=== PATIENT | female | born 1960 | race Caucasian/White ===

== ENCOUNTER → 2018-05-13 | Outpatient (CLI) | payer MEDICAID, MEDICARE ==
--- NOTE | 2018-05-13 15:15 | Diagnostic Imaging Report ---
PROCEDURE: CT abdomen and pelvis without contrast. TECHNIQUE: Multiple contiguous axial images were obtained through the abdomen and pelvis without the use of intravenous contrast. INDICATION: Frequent urinary tract infections and hematuria. COMPARISON: No prior studies are available for comparison. FINDINGS: There is a calcified granuloma in the right lower lobe. No discrete liver mass is identified. The gallbladder appears to be surgically absent. No biliary ductal dilatation is seen. The pancreas and spleen are unremarkable. Minimal nodularity to the left adrenal gland is noted measuring 12 mm. This appears to be low density and may represent a small adenoma. No definite renal calculi or hydronephrosis is identified. The aorta is calcified but nonaneurysmal. No central retroperitoneal or mesenteric lymphadenopathy is detected. The small and large bowel loops are normal caliber. The bladder is unremarkable. The uterus appears to be somewhat prominent but no discrete mass is detected. No definite pelvic lymphadenopathy is seen. The bony structures are nonacute. IMPRESSION: 1. Unremarkable noncontrast CT of the abdomen and pelvis. No urinary tract calculi or obstruction is identified. 2. Tiny low-density left adrenal gland, likely an adenoma. Followup CT in 4-6 months could be performed to confirm stability. Dictated by: Dictated on workstation # [id number]
== END ==
LOC: RAD 14:40
PROVIDERS: ATTEND Urology
DX: N39.0 Urinary tract infection, site not specified (principal); R31.0 Gross hematuria
CPT/HCPCS: 74176